=== PATIENT | male | born 1960 ===

== ENCOUNTER 2018-06-17 07:56 | Emergency (ER) | payer OTHER ==
[2018-06-17 08:06] VITALS: RESP 18; O2SAT 99
--- NOTE | 2018-06-17 08:40 | C.PDOC ---
History Of Present Illness 57 years old male presents to ED for complaints of left knee pain that began 4 months ago. Patient denies any injuries, trauma, or any other physical complaints. Time Seen by Provider: 06/17/18 08:19 Chief Complaint (Nursing): Lower Extremity Problem/Injury History Per: Patient History/Exam Limitations: no limitations Onset/Duration Of Symptoms: Hrs Current Symptoms Are (Timing): Still Present Recent travel outside of the [place]: No Past Medical History Reviewed: Historical Data, Nursing Documentation, Vital Signs Vital Signs: Last Vital Signs Temp 98.8 F 06/17/18 08:03 Pulse 88 06/17/18 08:03 Resp 18 06/17/18 08:03 BP 174/100 H 06/17/18 08:03 Pulse Ox 99 06/17/18 08:03 - Medical History PMH: No Chronic Diseases Surgical History: No Surg Hx Family History: States: Unknown Family Hx - Social History Hx Tobacco Use: No Hx Alcohol Use: Yes Hx Substance Use: No - Immunization History Hx Tetanus Toxoid Vaccination: No Hx Influenza Vaccination: No Hx Pneumococcal Vaccination: No Review Of Systems Except As Marked, All Systems Reviewed And Found Negative. Musculoskeletal: Positive for: Other (Left knee pain ) Physical Exam - Physical Exam Appears: Well, Non-toxic, No Acute Distress Skin: Normal Color, Warm, Dry, No Rash Head: Atraumatic, Normacephalic Eye(s): bilateral: Normal Inspection, PERRL, EOMI Oral Mucosa: Moist Neck: Supple Chest: Symmetrical, No Tenderness Cardiovascular: Rhythm Regular Respiratory: Normal Breath Sounds, No Rales, No Rhonchi, No Wheezing Gastrointestinal/Abdominal: Soft, No Tenderness Extremity: Normal ROM, Tenderness (Medial part of left knee), No Deformity Neurological/Psych: Oriented x3, Normal Speech Gait: Steady ED Course And Treatment O2 Sat by Pulse Oximetry: 99 (RA) Pulse Ox Interpretation: Normal - Other Rad Knee X-Ray X-Ray: Viewed By Me, Read By Radiologist Interpretation: Date of service: 06/17/2018. PROCEDURE: Left Knee Radiographs. HISTORY: Pain. COMPARISON: None. FINDINGS: BONES: Normal. No fracture. JOINTS: Tiny anterior superior patella enthesophyte. There also appears to be tiny posterior superior patella osteophyte. JOINT EFFUSION: [id number]-[id number] suprapatellar joint effusion. OTHER FINDINGS: None. IMP RESSION: No evidence of acute displaced fracture nor dislocation. Small suprapatellar joint effusion. See above discussion for additional details and findings Progress Note: Ordered Knee X-Ray Disposition - Disposition Referrals: [facility] at [facility] [Outside] Isrrael Holland MD [Staff Provider] - Disposition: HOME/ ROUTINE Disposition Time: 09:49 Condition: STABLE Additional Instructions: Follow up with PMD (Clinic) and Orthopedist within 1-2 days. Return to ED if feel worse. Prescriptions: Ibuprofen [Motrin Tab] 600 mg PO Q8 #30 tab amLODIPine [Norvasc] 5 mg PO DAILY #30 tab Instructions: High Blood Pressure (DC), Knee Pain Forms: kooldiner (Prydeinig) Print Language: TELUGU - Clinical Impression Clinical Impression: Hypertension, Knee pain - PA / RN NEUROSURGICAL / Resident Statement MD/DO has reviewed & agrees with the documentation as recorded. - Scribe Statement The provider has reviewed the documentation as recorded by the Scribe Carly Montes All medical record entries made by the Scribe were at my direction and personally dictated by me. I have reviewed the chart and agree that the record accurately reflects my personal performance of the history, physical exam, medical decision making, and the department course for this patient. I have also personally directed, reviewed, and agree with the discharge instructions and disposition.
[2018-06-17 10:05] VITALS: BP 160/88; PULSE 74; TEMP 97.8
--- NOTE | 2018-06-17 13:53 | RAD ---
Date of service: 06/17/2018 PROCEDURE: Left Knee Radiographs. HISTORY: Pain. COMPARISON: None. FINDINGS: BONES: Normal. No fracture. JOINTS: Tiny anterior superior patella enthesophyte. There also appears to be tiny posterior superior patella osteophyte JOINT EFFUSION: [id number] suprapatellar joint effusion. OTHER FINDINGS: None. IMPRESSION: No evidence of acute displaced fracture nor dislocation. Small suprapatellar joint effusion. See above discussion for additional details and findings
== END 2018-06-17 10:14 | disposition home or self-care (01) ==
LOC: C.ER 07:56
DX: M25.562 Pain in left knee (principal); I10 Essential (primary) hypertension